=== PATIENT | male | born 1980 | race Caucasian/White ===

== ENCOUNTER 2022-01-05 06:27 | Emergency (ER) | payer OTHER ==
[2022-01-05] MEDS ORDERED: Lidocaine 1% MPF 2 ML VIAL ONE (07:29)
[2022-01-05] MEDS ORDERED: Boostrix 0.5 ML (Tdap) VIAL (>/=7 yrs of age) ONE (07:29)
== END 2022-01-05 08:27 ==
LOC: ERS 06:27
DX: S61.011A Laceration without foreign body of right thumb without damage to nail, initial encounter (principal); X58.XXXA Exposure to other specified factors, initial encounter; Z87.891 Personal history of nicotine dependence; Z23 Encounter for immunization
CPT/HCPCS: 12001; 90715